=== PATIENT | male | born 1960 | race Caucasian/White ===

== ENCOUNTER 2019-03-27 19:35 | Emergency (ER) | payer SELFPAY ==
[2019-03-27] MEDS ORDERED: Sodium Chloride 0.9% 1,000 ML IV ONE (19:45)
[2019-03-27] MEDS ORDERED: fentaNYL 100 MCG/2 ML SDV ONE (19:55)
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
[2019-03-27 20:20] LABS: CHLORIDE,CL 103 mmol/L (98-107); SODIUM,NA 139 mmol/L (136-145)
[2019-03-27 20:20] LABS: BUPRENORPHINE,URINE NEGATIVE (NEGATIVE); MARIJUANA,URINE NEGATIVE (NEGATIVE); METHYLENEDIOXYMETHAMP,UR NEGATIVE (NEGATIVE); PHENCYCLIDINE,URINE NEGATIVE (NEGATIVE)
[2019-03-27 20:23] LABS: ANION GAP 18.6 mmol/L (10-20)
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
== END 2019-03-27 20:35 | disposition short-term general hospital (02) ==
LOC: VM.ED 19:35
DX: S20.311A Abrasion of right front wall of thorax, initial encounter (principal); S30.811A Abrasion of abdominal wall, initial encounter; S50.312A Abrasion of left elbow, initial encounter; F10.129 Alcohol abuse with intoxication, unspecified; R40.2410 Glasgow coma scale score 13-15, unspecified time; V48.5XXA Car driver injured in noncollision transport accident in traffic accident, initial encounter
CPT/HCPCS: 51702; 70450; 71045; 72125; 72170; 80053; 80305; 81001; 84484; 85025; 85610; 85730; 86850; 86900; 86901; 96361; 96374; 99291; G0390; G0480; 99283-GF